=== PATIENT | male | born 1980 | race African-American/Black ===

== ENCOUNTER 2021-03-10 22:17 | Emergency (ER) | payer MEDICAID ==
[~2021-03-10] VITALS: Ht 188 cm; Wt 88.5 kg
--- NOTE | 2021-03-10 22:30 | NUR ---
pt bibself c/o high blood pressure s/p drinking and taking viagra. Pt aaox4 breathing evenly and unlabored. Pt attached to monitor and pox. MD at bedside. Pt given blanket and call light within reach
[2021-03-11] MEDS ORDERED: IBUPROFEN 400 MG TABLET PO ONE
[2021-03-11] MEDS ORDERED: IBUPROFEN 400 MG TABLET ONE (00:06)
--- NOTE | 2021-03-11 00:38 | NUR ---
Patient discharged to home in stable condition. Written and verbal after care instructions given. Patient verbalizes understanding of instruction. Pt ambulatory with a steady gait
[2021-03-11 00:47] VITALS: BP 164/105
== END 2021-03-11 00:38 | disposition home or self-care (01) ==
LOC: ER 22:25
DX: R51.9 Headache, unspecified (principal); J45.909 Unspecified asthma, uncomplicated; F12.90 Cannabis use, unspecified, uncomplicated